=== PATIENT | female | born 1995 | race Caucasian/White ===

== ENCOUNTER → 2016-10-09 | Outpatient (CLI) | payer BC ==
--- NOTE | 2016-10-09 11:20 | REP ---
PELVIC ULTRASOUND: Real-time sonographic evaluation of the pelvis is performed utilizing transabdominal and endovaginal technique. The bladder measures 9.6 x 9.6 x 4.1 cm. The uterus measures 7.1 x 4.0 x 5.1 cm. The uterus has a partially septate configuration, with endometrium in the right horn measuring 5 mm and left 9 mm. The uterus is retroverted. The ovaries appear normal in size and echotexture, right ovary measuring 1.4 x 1.1 x 1.3 cm and the left ovary 2.1 x 1.4 x 1.3 cm. There is no adnexal mass or free fluid. Blood flow was seen in each ovary with duplex Doppler evaluation, with no torsion. The resistive index right ovary is 0.67 and left ovary 0.57. IMPRESSION: Essentially negative pelvic ultrasound as above. No adnexal mass or free fluid. No torsion. Partially septate uterus. Signed by Brandon Chang MD 10/09/2016 12:30 P
== END ==
LOC: M RAD 10:06
PROVIDERS: ATTEND Nurse Practitioner Women's Health
DX: R10.32 Left lower quadrant pain (principal); Q51.2 Other doubling of uterus

== ENCOUNTER → 2016-11-13 | Day surgery (SDC) | payer BC ==
[~2016-11-13] VITALS: Ht 182.9 cm; Wt 76.2 kg
[~2016-11-13] MED LIST: GLYCOPYRROLATE INJ 0.2 MG/ML 2 ML VIAL As Ordered ONE; HYDR5TAB59 PO; IBUPROFEN 600 MG TAB PO PRN; KETOROLAC 60 MG/2 ML VIAL (J1885) As Ordered ONE; LEVO25TA5 PO; LIDOCAINE 2% INJ 100 MG/5 ML SDV (FOR ANES.) As Ordered ONE; LR 1,000 ML IV SCH; METOCLOPRAMIDE INJ 10MG/2ML VIAL (J2765) IV PRN; MIDAZOLAM INJ 2 MG/2 ML VIAL (J2250) As Ordered ONE; MORPHINE 2 MG/ML 1ML SYRINGE IV PRN; NEOSTIGMINE 1MG/ML 5 ML SYRINGE (J2710) As Ordered ONE; NORCO, ANEXSIA 5/325MG TABLET (HYDROcodone/ACETAMINOPHEN) PO PRN; ONDANSETRON 4MG/2ML VIAL (J2405) As Ordered ONE; ONDANSETRON 4MG/2ML VIAL (J2405) IV PRN; PERCOCET 5MG/325MG TAB As Ordered ONE; PERCOCET 5MG/325MG TAB PO PRN; PROPOFOL 200 MG/20 ML VIAL As Ordered ONE; ROCURONIUM BROMIDE 50 MG/5 ML VIAL As Ordered ONE; SCOPOLAMINE 1.5 MG TRANSDERMAL As Ordered ONE; SCOPOLAMINE 1.5 MG TRANSDERMAL TOP ONE; SEASTAB PO; SPIR50TA2 PO; XYRE500S PO; dexameTHASONE 4 MG/ML 1ML VIAL (J1100) As Ordered ONE; fentaNYL 100 MCG/2 ML INJECTION (J3010) As Ordered ONE; fentaNYL 100 MCG/2 ML INJECTION (J3010) IV PRN; fentaNYL 250 MCG/5 ML INJECTION (J3010) As Ordered ONE
[2016-11-13 09:42] LABS: CONTROL LINE UCG INT CTR LINE PRESENT
[2016-11-13 18:00] VITALS: BP 137/67
--- NOTE | 2016-11-14 09:13 | RO ---
DATE OF PROCEDURE: 11/13/2016 PREPROCEDURE DIAGNOSIS: Symptomatic endometriosis. POSTPROCEDURE DIAGNOSIS: Symptomatic endometriosis. PROCEDURE: Robotic assisted resection of endometriotic implants and laser ablation of other implants. SURGEON: Dr. Mariola Yip ASSISTANT PROFESSOR OF PSYCHOLOGY: Mayda Ramirez. ANESTHESIA: General endotracheal anesthesia. ESTIMATED BLOOD LOSS: BRIEF DESCRIPTION OF PROCEDURE AND FINDINGS: Gregory was brought to the operating room where sufficient general endotracheal anesthesia was induced. She was prepped, draped and positioned in the usual sterile fashion with the uterine manipulator placed in this retroverted uterus and it was carefully rotated anteriorly and a Ashley with the ability to backfill the bladder was placed as well. We then turned our attention to the umbilicus and worked through the previous umbilical scar to the level of the rectus fascia which was transversely incised and then #0 Vicryl sutures placed and the peritoneum entered under direct visualization. The Gutierrez trocar for the robot placed and then CO2 insufflation then begun. After adequate CO2 insufflation, the peritoneal cavity was visualized. The peritoneal surfaces were shiny throughout. There were some minor adhesions in the descending colon and some scarring where previous endometriosis had been cauterized and then in the pelvis, there were implants of endometrium throughout the cul-de-sac over both ureterosacrals and there was none anteriorly and we were able to see the course of the ureter and the peritoneum over the ureters was mobile, so we placed two left side and one right sided port and placed the patient in Trendelenburg. We also saw evidence of constipation but with the patient in Trendelenburg, we had good visualization, had to manipulator rotated to lift the uterus anteriorly and were able to using the PK and cold scissors to carefully lift the endometriotic implants and they were able to incise the peritoneum working with cold scissors when we were close the ureters. Fortunately, this patient is thin enough that we were able to see them quite well and we were able with traction to move the dissection away from the ureters. We were then able with the PK to control the bleeding with short burst of the PK and then carefully manipulate it so a couple endometriotic implants off the patient's left ureterosacral and off the cul-de-sac where there were a couple clusters of endometriotic implants and then one off the right ureterosacral were removed in their entirety and then there were some individual spots of endometriosis that we went through with a laser and cauterized those, took care to avoid injury to bowel and with Trendelenburg, we were able to keep the bowel out of the way, of course, except for the descending colon and rectum but we took care to elevate those tissues from the cul-de-sac while we worked on them and again to work with the cold scissors as much as we could and then carefully with the PK for good hemostasis but also for minimization of use of just loose cautery. Then having removed those lesions, we also saw a small what looks like a fecalith, we pulled that out of the peritoneum as well and again I used the laser to carefully treat any areas of either flame or a powder burn that were small and just individual dots through the cul-de-sac and over the ureterosacrals. With traction on the peritoneum, we could see that we were well away from the ureters and of course, we could also elevate the posterior cul-de-sac off the rectum so we were able to avoid ureteral or bowel injury. There did not appear to be implants on the bladder so we were able to backfill readily but we did not need to work close to the bladder because there did not appear to be any endometriotic implants there. Fortunately, there did not appear to be any endometriotic implants on the bowel either, there were a couple on the left pelvic side wall. We did go ahead and just cauterize those as well but there did not appear to be any on the bowel and having removed, cauterized all the visible endometriosis, we went ahead and completed the procedure, removing the CO2, removed the patient from Trendelenburg, and of course removed the instruments and then closed the wounds. The fascia at the umbilical wound was closed with #0 Vicryl retention sutures and the skin, all wounds were closed with #3-0 in a subcuticular stitch. Dry sterile dressings were applied. Estimated blood loss for the procedure was less than 10 mL. Fluid replacement was Crystalloid. Complications: None. CONDITION AND DISPOSITION: Gregory tolerated the procedure well and was recovering in the recovery room in good condition.
== END | disposition home or self-care (01) ==
LOC: M SDC 08:46
PROVIDERS: ATTEND Obstetrics & Gynecology
DX: N80.3 Endometriosis of pelvic peritoneum (principal); I49.8 Other specified cardiac arrhythmias; E03.9 Hypothyroidism, unspecified; F41.9 Anxiety disorder, unspecified; F32.9 Major depressive disorder, single episode, unspecified; Q82.2 Congenital cutaneous mastocytosis; Z88.2 Allergy status to sulfonamides; Z88.5 Allergy status to narcotic agent; Z86.2 Personal history of diseases of the blood and blood-forming organs and certain disorders involving the immune mechanism; Z79.899 Other long term (current) drug therapy
CPT/HCPCS: 58662; 84703; 88304; J1100; J1885; J2250; J2405; J2710; J3010

== ENCOUNTER 2017-01-29 09:06 | Day surgery (SDC) | payer BC ==
[~2017-01-29] VITALS: Ht 182.9 cm; Wt 76.2 kg
[~2017-01-29 09:06] MED LIST changes: +AMET90TA PO; +GABA-279 PO; -GLYCOPYRROLATE INJ 0.2 MG/ML 2 ML VIAL As Ordered ONE; -IBUPROFEN 600 MG TAB PO PRN; -KETOROLAC 60 MG/2 ML VIAL (J1885) As Ordered ONE; -LIDOCAINE 2% INJ 100 MG/5 ML SDV (FOR ANES.) As Ordered ONE; -LR 1,000 ML IV SCH; -METOCLOPRAMIDE INJ 10MG/2ML VIAL (J2765) IV PRN; -MIDAZOLAM INJ 2 MG/2 ML VIAL (J2250) As Ordered ONE; -MORPHINE 2 MG/ML 1ML SYRINGE IV PRN; -NEOSTIGMINE 1MG/ML 5 ML SYRINGE (J2710) As Ordered ONE; -NORCO, ANEXSIA 5/325MG TABLET (HYDROcodone/ACETAMINOPHEN) PO PRN; -ONDANSETRON 4MG/2ML VIAL (J2405) As Ordered ONE; -ONDANSETRON 4MG/2ML VIAL (J2405) IV PRN; -PERCOCET 5MG/325MG TAB As Ordered ONE; -PERCOCET 5MG/325MG TAB PO PRN; -PROPOFOL 200 MG/20 ML VIAL As Ordered ONE; -ROCURONIUM BROMIDE 50 MG/5 ML VIAL As Ordered ONE; -SCOPOLAMINE 1.5 MG TRANSDERMAL As Ordered ONE; -SCOPOLAMINE 1.5 MG TRANSDERMAL TOP ONE; -dexameTHASONE 4 MG/ML 1ML VIAL (J1100) As Ordered ONE; -fentaNYL 100 MCG/2 ML INJECTION (J3010) As Ordered ONE; -fentaNYL 100 MCG/2 ML INJECTION (J3010) IV PRN; -fentaNYL 250 MCG/5 ML INJECTION (J3010) As Ordered ONE
[2017-01-29] MEDS ORDERED: LR 1,000 ML IV ONE (09:30)
[2017-01-29] MEDS ORDERED: LR 1,000 ML IV SCH ×2 (09:30→16:00)
[2017-01-29] MEDS ORDERED: LIDOCAINE 1% MDV 20ML VIAL SC PRN (09:30)
[2017-01-29 09:53] LABS: MEAN CORPUSCULAR HEMOGLOBIN 32.2 pg (27.0-33.0); MEAN CORPUSCULAR HGB CONC 35.1 g/dl (32.0-36.5); MEAN CORPUSCULAR VOLUME 91.7 fl (80.0-96.0); RED CELL DISTRIBUTION WIDTH 12.1 % (11.5-14.5); WHITE BLOOD COUNT 3.7 K/mm3 (4.0-10.0)
[2017-01-29] MEDS ORDERED: PROPOFOL 200 MG/20 ML VIAL As Ordered ONE (10:08)
[2017-01-29] MEDS ORDERED: ONDANSETRON 4MG/2ML VIAL (J2405) As Ordered ONE (10:08)
[2017-01-29] MEDS ORDERED: dexameTHASONE 4 MG/ML 1ML VIAL (J1100) As Ordered ONE (10:08)
[2017-01-29] MEDS ORDERED: ROCURONIUM BROMIDE 50 MG/5 ML VIAL/SYRINGE As Ordered ONE ×2 (10:08→14:48)
[2017-01-29] MEDS ORDERED: LIDOCAINE 2% INJ 100 MG/5 ML SDV (FOR ANES.) As Ordered ONE (10:08)
[2017-01-29] MEDS ORDERED: MIDAZOLAM INJ 2 MG/2 ML VIAL (J2250) As Ordered ONE (10:09)
[2017-01-29] MEDS ORDERED: fentaNYL 100 MCG/2 ML INJECTION (J3010) As Ordered ONE (10:09)
[2017-01-29] MEDS ORDERED: GLYCOPYRROLATE INJ 0.2 MG/ML 2 ML VIAL As Ordered ONE ×2 (11:58→14:02)
[2017-01-29] MEDS ORDERED: NEOSTIGMINE 1MG/ML 5 ML SYRINGE (J2710) As Ordered ONE ×2 (11:58→14:02)
[2017-01-29] MEDS ORDERED: SCOPOLAMINE 1.5 MG TRANSDERMAL As Ordered ONE (12:04)
[2017-01-29] MEDS ORDERED: SCOPOLAMINE 1.5 MG TRANSDERMAL TOP ONE (12:15)
[2017-01-29] MEDS ORDERED: fentaNYL 250 MCG/5 ML INJECTION (J3010) As Ordered ONE (13:50)
[2017-01-29] MEDS ORDERED: KETOROLAC 60 MG/2 ML VIAL (J1885) As Ordered ONE (14:02)
[2017-01-29] MEDS ORDERED: MORPHINE 1MG/ML IN 0.9% NACL 100ML IV BAG As Ordered ONE (15:33)
[2017-01-29] MEDS ORDERED: PERCOCET 5MG/325MG TAB PO PRN (16:00)
[2017-01-29] MEDS ORDERED: fentaNYL 100 MCG/2 ML INJECTION (J3010) IV PRN (16:00)
[2017-01-29] MEDS ORDERED: MEPERIDINE INJ 25 MG/ML VIAL (J2175) IV PRN (16:00)
[2017-01-29] MEDS ORDERED: METOCLOPRAMIDE INJ 10MG/2ML VIAL (J2765) IV PRN (16:00)
[2017-01-29] MEDS: LR 1,000 ML IV SCH ×2 (16:00→22:59)
[2017-01-29] MEDS ORDERED: ONDANSETRON 4MG/2ML VIAL (J2405) IV PRN (16:00)
[2017-01-29] MEDS ORDERED: diphenhydrAMINE INJ 50MG/ML VIAL (J1200) IV PRN (16:15)
[2017-01-29] MEDS ORDERED: NALBUPHINE HCL 10 MG/ML AMP (J2300) IV PRN (16:15)
[2017-01-29] MEDS ORDERED: MORPHINE 1MG/ML IN 0.9% NACL 100ML IV BAG IV PRN (16:15)
[2017-01-29] MEDS ORDERED: NALOXONE INJ 0.4 MG/1 ML VIAL (J2310) IV PRN (16:15)
[2017-01-29] MEDS ORDERED: EPIDURAL/PCA KEYS XX PRN (16:15)
[2017-01-29 17:40] VITALS: BP 156/84
[2017-01-29 18:10] VITALS: BP 145/90
[2017-01-29 18:40] VITALS: BP 134/81
[2017-01-29 20:00] VITALS: BP 138/91
[2017-01-29 21:00] VITALS: BP 138/90
[2017-01-29] MEDS ORDERED: SPIRONOLACTONE 50 MG TAB PO SCH (21:00)
[2017-01-29 22:00] VITALS: BP 132/80
[2017-01-29] MEDS ORDERED: PROMETHAZINE INJ 25 MG/ML VIAL (J2550) IV ONE (22:30)
[2017-01-29] MEDS: GABAPENTIN 100 MG CAP PO SCH (23:28)
[2017-01-30] VITALS: BP 136/87
[2017-01-30] MEDS: IBUPROFEN 600 MG TAB PO PRN ×2 (02:40→09:16)
[2017-01-30 04:00] VITALS: BP 138/89
[2017-01-30] MEDS ORDERED: NORCO, ANEXSIA 5/325MG TABLET (HYDROcodone/ACETAMINOPHEN) PO PRN (06:00)
[2017-01-30] MEDS ORDERED: LEVOTHYROXINE 50MCG TABLET (0.05MG) PO SCH (06:00)
[2017-01-30 07:33] LABS: MEAN CORPUSCULAR HEMOGLOBIN 32.3 pg (27.0-33.0); MEAN CORPUSCULAR HGB CONC 35.6 g/dl (32.0-36.5); MEAN CORPUSCULAR VOLUME 90.7 fl (80.0-96.0); WHITE BLOOD COUNT 8.8 K/mm3 (4.0-10.0)
[2017-01-30 08:00] VITALS: BP 136/90
[2017-01-30] MEDS: GABAPENTIN 100 MG CAP PO SCH (08:33)
[2017-01-30] MEDS ORDERED: NORCOTAB PO (08:50)
[2017-01-30] MEDS ORDERED: IBUP-1022 PO (08:50)
--- NOTE | 2017-01-30 11:53 | RO ---
DATE OF PROCEDURE: 01/29/2017 PREOPERATIVE DIAGNOSIS/INDICATION FOR SURGERY: Pain, bleeding, endometriosis, failed conservative measures. POSTOPERATIVE DIAGNOSIS: Pain, bleeding, endometriosis, failed conservative measures. PROCEDURE: Laparoscopic assisted vaginal hysterectomy (LAVH). Bilateral salpingectomy. Patient retained her ovaries. SURGEON: Mariola Yip MD INDUSTRIAL GAS SERVICE HELPER: CHAPIN Hernandez ANESTHESIA: General endotracheal anesthesia. BRIEF DESCRIPTION OF PROCEDURE: Gregory was brought to the operating room where sufficient general endotracheal anesthesia was induced and she was prepped, draped and positioned in the usual sterile fashion, the uterine manipulator place and the bladder emptied with a Ashley with the ability to back fill. We then approached he abdomen and a semilunar incision was made over the line of her previous laparoscopy scar and sharp and blunt dissection continued through the subcutaneous tissues to the level of the rectus fascia which was transversely incised, secured with #0 Vicryl retention sutures and then the peritoneum entered under direct visualization in an open laparoscopic technique. Then the Stephen cannula was placed and secured in place with the #0 Vicryl retention sutures and then CO2 insufflation was begun. After adequate CO2 insufflation, the peritoneal cavity was visualized. There was again some evidence of endometriosis but less than on the previous evaluation, the pictures of which are in the patient's chart. The peritoneal surfaces themselves are otherwise normal in appearance other than the scarring as expected and the endometriotic change. There is otherwise shiny peritoneum without excrescence, ascites or exudate and there is scarring from the patient's previous tubal ligation, but no significant scarring over the ovaries themselves. Much of the implant and the scarring from the endometriotic change is really over the uterosacrals and the patient has considerable dyspareunia consistent with that location. Using the operative port and the laparoscope, a 45 ENSEAL was placed and the distal fallopian tube fimbria were excised on each side and removed with the grasper. Starting first on the left side then moving to the right. After the right fallopian tube had been released, some fraying of the insulation over the ENSEAL was noted and the ENSEAL was pulled out and a small disruption in this was noted and that ENSEAL was set aside and a new one was obtained. There did not appear to be any arcing or risk from this minor fraying of injury to the bowel because of the location of it, and I do not believe that that impacted it, but we certainly we did not want to take the risk of having any disruption in the insulation. So moving on with a new ENSEAL, we freed the ovaries from the uterus and the round ligaments were also transected and photographs were taken. Having worked through the superior aspect of the broad ligament and backfilling to make sure we had the appropriate location, we then used the cold scissors to create a bladder flap anteriorly and then turned our attention to the vaginal approach. After of course removing the instruments but leaving the trocar in place at the umbilicus, we turned to the vaginal portion of the case, removed the uterine manipulator and then using single tooth tenaculum to place traction on the cervix, a circumferential incision was made around the base of the cervix. The cardinal ligaments were isolated bilaterally, clamped with Timmons clamps, which were used throughout this portion of the case, transected with the SuperCut scissors and then sutured with #0 Vicryl, which was also used throughout this portion of the case. The uterosacrals were then isolated, clamped, transected and ligated and marked for later reconnection to the cuff in this young patient. I then moved on anteriorly to joint up with the dissection from above and isolated the uterine vasculature in a sequential pattern along the lateral aspect of the uterus, until the uterus could be delivered. We had already removed the distal portion of the tubes through the umbilical wound because the mid portion of the tubes was obliterated by the patient's previous tubal ligation. Then, having delivered the uterus, examined the pedicles, had good hemostasis, we then resecured the uterosacrals and closed the cuff with closure of the angles with #0 Vicryl angle stitches and then a running locked closure, again using #0 Vicryl with good approximation and hemostasis achieved. We then removed the umbilical port, used the fascial suture to close the fascial wound at the umbilicus and #3-0 Vicryl in a subcuticular stitch to close the skin at the umbilicus and then dry sterile dressing as then applied. ESTIMATED BLOOD LOSS FOR PROCEDURE: Approximately 50 mL. FLUID REPLACEMENT: Crystalloid. COMPLICATIONS: None. CONDITION AND DISPOSITION: Gregory tolerated the procedure well and was recovering in the recovery room in good condition.
== END 2017-01-30 10:30 | disposition home or self-care (01) ==
LOC: M SDC 09:06 → M PED 16:27 → M SDC 01-30 10:30
PROVIDERS: ATTEND Obstetrics & Gynecology
DX: N92.0 Excessive and frequent menstruation with regular cycle (principal); N85.00 Endometrial hyperplasia, unspecified; Q82.2 Congenital cutaneous mastocytosis; I49.8 Other specified cardiac arrhythmias; G47.419 Narcolepsy without cataplexy; N94.10 Unspecified dyspareunia; N94.3 Premenstrual tension syndrome; E03.9 Hypothyroidism, unspecified; F41.9 Anxiety disorder, unspecified; F32.9 Major depressive disorder, single episode, unspecified; Z88.2 Allergy status to sulfonamides; Z88.5 Allergy status to narcotic agent; Z79.899 Other long term (current) drug therapy; Z98.51 Tubal ligation status
CPT/HCPCS: 36415; 58552; 85027; 86850; 86900; 86901; 88307; 96374; 96375; J0690; J1100; J1885; J2250; J2405; J2710; J3010